=== PATIENT | female | born 1955 | race Caucasian/White ===

== ENCOUNTER 2016-09-10 16:31 | Emergency (ER) | payer OTHER ==
[~2016-09-10] VITALS: Ht 157.5 cm; Wt 77.1 kg
[~2016-09-10 16:31] MED LIST: METFORMIN500 MG PO
[2016-09-10 16:55] VITALS: BP 154/131
--- NOTE | 2016-09-10 17:00 | NUR ---
PT TO OVERFLOW.
--- NOTE | 2016-09-10 17:06 | NUR ---
PATIENT PRESENTS TO ED WITH C/O COUGH . PT STATES THE COUGH STARTED 2 WEEKS AGO AND HAS NOT IMPROVED . DENIES N/V/D; SKIN IS PINK/WARM/DRY; AAOX4 WITH EVEN AND STEADY GAIT; LUNGS CLEAR BL; HR EVEN AND REGULAR; PT DENIES ANY FEVER, CP, SOB, OR COUGH AT THIS TIME; PATIENT STATES PAIN IN HEAD AND CHEST 8/10 W/COUGH AT THIS TIME; VSS; PT IN OVERFLOW, ER MD MADE AWARE OF PT STATUS.
--- NOTE | 2016-09-10 17:30 | NUR ---
NO DISTRESS. STILL IN OF. LUNGS CLEAR TO AUSCULTATE
[2016-09-10 19:01] VITALS: BP 156/80
--- NOTE | 2016-09-10 19:02 | NUR ---
Patient discharged with v/s stable. Written and verbal after care instructions given and explained. Patient alert, oriented and verbalized understanding of instructions. Ambulatory with steady gait. All questions addressed prior to discharge. ID band removed. Patient advised to follow up with PMD. Rx of AZITHROMYCINOCEAN SPRAY, given. Patient educated on indication of medication including possible reaction and side effects. Opportunity to ask questions provided and answered.
== END 2016-09-10 19:02 | disposition home or self-care (01) ==
LOC: MED 16:31
DX: J01.90 Acute sinusitis, unspecified (principal)

== ENCOUNTER 2017-01-16 08:36 | Outpatient (CLI) | payer OTHER ==
[~2017-01-16 08:36] MED LIST changes: +GLU500 PO; -METFORMIN500 MG PO
[2017-01-16 09:16] LABS: BASOPHILS # (AUTO) 0.3 K/uL (0.00-0.22); BASOPHILS % (AUTO) 4.4 % (0.0-2.0); EOSINOPHILS # (AUTO) 0.2 K/uL (0-0.4); EOSINOPHILS % (AUTO) 4.1 % (0.0-4.0); HEMATOCRIT 34.5 % (36-48); HEMOGLOBIN 11.4 g/dL (12.0-16.0); LYMPHOCYTES # (AUTO) 2.4 K/uL (2.5-16.5); LYMPHOCYTES % (AUTO) 41.8 % (20.5-51.1); MEAN CORPUSCULAR HEMOGLOBIN 31 pg (27-31); MEAN CORPUSCULAR HGB CONC 33 g/dL (33-37); MEAN CORPUSCULAR VOLUME 94 fL (80-94); MONOCYTES # (AUTO) 0.7 K/uL (0.8-1.0); MONOCYTES % (AUTO) 12.2 % (1.7-9.3); NEUTROPHILS # (AUTO) 2.1 K/uL (1.8-7.7); NEUTROPHILS % (AUTO) 37.5 % (42.2-75.2); PLATELET COUNT (AUTO) 183 K/uL (140-450); RED BLOOD CELL COUNT(AUTO) 3.68 MIL/uL (4.20-5.40); RED CELL DISTRIBUTION WIDTH 13.4 % (11.6-13.7); WHITE BLOOD COUNT (AUTO) 5.7 K/uL (4.8-10.8)
[2017-01-16 09:40] LABS: ALBUMIN 3.8 g/dL (3.4-5.0); ANION GAP 7.6 (8-16); CARBON DIOXIDE 29.4 mmol/L (21-32); CHOL/HDL RATIO 2.6 (1-4.5); CREATININE 1.1 mg/dL (0.6-1.3); TOTAL BILIRUBIN 0.3 mg/dL (0.0-1.0)
[2017-01-16 09:44] LABS: APPEARANCE,URINE HAZY (CLEAR); BILIRUBIN,URINE NEGATIVE (NEGATIVE); BLOOD, URINE 1+ (NEGATIVE); COLOR,URINE YELLOW (YELLOW); LEUKOCYTE ESTERASE ,URINE 1+ (NEGATIVE); NITRITE, URINE NEGATIVE (NEGATIVE); UGLUCOSE NEGATIVE (NEGATIVE)
[2017-01-16 10:32] LABS: RBC,URINE 0-5 (RARE) /HPF (0-5)
== END 2017-01-16 20:41 | disposition home or self-care (01) ==
LOC: MLB 08:36
PROVIDERS: ATTEND Family Medicine Geriatric Medicine
DX: Z13.21 Encounter for screening for nutritional disorder (principal); Z12.11 Encounter for screening for malignant neoplasm of colon; E11.40 Type 2 diabetes mellitus with diabetic neuropathy, unspecified; D64.9 Anemia, unspecified; E78.00 Pure hypercholesterolemia, unspecified; I10 Essential (primary) hypertension
CPT/HCPCS: 36415; 80053; 81001; 82306; 83036; 85025; 87086

== ENCOUNTER 2017-07-10 10:14 | Outpatient (CLI) | payer OTHER | END 2017-07-10 19:56 | disposition home or self-care (01) | LOC: MUS 10:14 | PROVIDERS: ATTEND Family Medicine Geriatric Medicine | DX: M79.605 Pain in left leg (principal); I73.9 Peripheral vascular disease, unspecified | CPT/HCPCS: 93926; 93971 ==

== ENCOUNTER 2017-08-14 10:20 | Outpatient (CLI) | payer OTHER ==
[2017-08-14 11:32] LABS: ALBUMIN 3.7 g/dL (3.4-5.0); ANION GAP 13.9 (8-16); CARBON DIOXIDE 26.4 mmol/L (21-32); CHOL/HDL RATIO 2.9 (1-4.5); CREATININE 1.2 mg/dL (0.6-1.3); POTASSIUM 4.3 mmol/L (3.5-5.1); TOTAL BILIRUBIN 0.3 mg/dL (0.0-1.0)
== END 2017-08-14 17:36 | disposition home or self-care (01) ==
LOC: MLB 10:20
PROVIDERS: ATTEND Family Medicine Geriatric Medicine
DX: E11.40 Type 2 diabetes mellitus with diabetic neuropathy, unspecified (principal); E11.22 Type 2 diabetes mellitus with diabetic chronic kidney disease; N18.3 Chronic kidney disease, stage 3 (moderate); E78.00 Pure hypercholesterolemia, unspecified
CPT/HCPCS: 36415; 80053; 83036

== ENCOUNTER 2018-01-08 09:10 | Outpatient (CLI) | payer OTHER ==
[2018-01-08 11:13] LABS: ANION GAP 6.2 (8-16); CARBON DIOXIDE 27.6 mmol/L (21-32); POTASSIUM 4.8 mmol/L (3.5-5.1)
[2018-01-08 11:14] LABS: ALBUMIN 3.7 g/dL (3.4-5.0); CREATININE 1.3 mg/dL (0.6-1.3); TOTAL BILIRUBIN 0.2 mg/dL (0.0-1.0)
[2018-01-09 08:30] LABS: MICROALBUMIN, UR RANDOM <3.0 ug/mL (Not Estab.)
== END 2018-01-08 19:37 | disposition home or self-care (01) ==
LOC: MLB 09:10
PROVIDERS: ATTEND Family Medicine Geriatric Medicine
DX: E11.40 Type 2 diabetes mellitus with diabetic neuropathy, unspecified (principal)
CPT/HCPCS: 36415; 80053; 82043; 83036

== ENCOUNTER 2018-01-26 09:53 | Outpatient (CLI) | payer OTHER | END 2018-01-26 20:12 | disposition home or self-care (01) | LOC: MRD 09:53 | PROVIDERS: ATTEND Family Medicine Geriatric Medicine | DX: M17.0 Bilateral primary osteoarthritis of knee (principal); E11.9 Type 2 diabetes mellitus without complications | CPT/HCPCS: 73565 ==

== ENCOUNTER 2018-04-24 10:43 | Outpatient (CLI) | payer OTHER | END 2018-04-24 21:26 | disposition home or self-care (01) | LOC: MUS 10:43 | DX: N28.1 Cyst of kidney, acquired (principal); I10 Essential (primary) hypertension; E11.9 Type 2 diabetes mellitus without complications | CPT/HCPCS: 76770 ==

== ENCOUNTER 2018-04-27 11:05 | Outpatient (CLI) | payer OTHER ==
[2018-04-27 13:12] LABS: ALBUMIN 4.5 g/dL (3.4-5.0); PHOSPHORUS 4.6 mg/dL (2.5-4.9)
[2018-04-27 13:30] LABS: URIC ACID 5.9 mg/dL (2.6-7.2)
[2018-04-27 13:31] LABS: ANION GAP 13.7 (8-16); CARBON DIOXIDE 26.6 mmol/L (21-32); CREATININE 1.1 mg/dL (0.6-1.3); POTASSIUM 4.3 mmol/L (3.5-5.1)
== END 2018-04-27 20:42 | disposition home or self-care (01) ==
LOC: MLB 11:05
DX: N17.9 Acute kidney failure, unspecified (principal); I10 Essential (primary) hypertension; E11.9 Type 2 diabetes mellitus without complications
CPT/HCPCS: 36415; 80048; 82040; 82570; 84100; 84157; 84550

== ENCOUNTER 2018-09-22 10:42 | Emergency (ER) | payer OTHER ==
[~2018-09-22] VITALS: Ht 157.5 cm; Wt 76.7 kg
[2018-09-22 10:52] VITALS: BP 154/78
--- NOTE | 2018-09-22 10:55 | NUR ---
PT TO BED 9
--- NOTE | 2018-09-22 11:03 | NUR ---
63 YEAR OLD PATIENT BROUGHT IN BY SELF C/O LEFT KNEE PAIN. PT STATED KNEE PAIN STARTED AFTER ALMOST FALLING LAST NIGHT. KNEE PAIN CONTINUES AND APPEARS SWOLLEN. PATIENT STATES PAIN OF 10/10. ABLE TO ABULATE WITH CANE. MEDHX: DIABETES, LEFT LEG VARICOSE VEIN SURGERY. PATIENT STATED CHIROPRACTOR INJECTED MEDICATION IN LEFT KNEE 2 MONTHS AGO BUT MEDICINE DID NOT WORK. PATIENT POSITIONED FOR COMFORT; HOB ELEVATED; BEDRAILS UP X1
--- NOTE | 2018-09-22 11:03 | NUR ---
Note angelnay in EDM - 09/22/18 at 1107 by [email or web address] C/O OF LEFT KNEE PAIN X THIS AM WHILE GETTING OUT OF THE SHOWER. PT STS "I TWISTED IT." PATIENT C/O KNEE PAIN. PT STATED KNEE PAIN STARTED AFTER ALMOST FALLING LAST NIGHT. KNEE PAIN CONTINUES AND APPEARS SWOLLEN. PATIENT STATES PAIN OF 01/14. PATIENT POSITIONED FOR COMFORT; HOB ELEVATED; BEDRAILS UP X1
--- NOTE | 2018-09-22 11:07 | NUR ---
Note angelnay in EDM - 09/22/18 at 1119 by [facility] PATIENT C/O KNEE PAIN. PT STATED KNEE PAIN STARTED AFTER ALMOST FALLING LAST NIGHT. KNEE PAIN CONTINUES AND APPEARS SWOLLEN. PATIENT STATES PAIN OF 10/10. PATIENT POSITIONED FOR COMFORT; HOB ELEVATED; BEDRAILS UP X1
--- NOTE | 2018-09-22 11:10 | NUR ---
xray at bedside
--- NOTE | 2018-09-22 11:28 | NUR ---
Patient being reevaluated by DR. KAMARA at bedside.
[2018-09-22 11:37] VITALS: BP 154/78
--- NOTE | 2018-09-22 11:37 | NUR ---
Patient discharged with v/s stable. Written and verbal after care instructions given and explained. Patient alert, oriented and verbalized understanding of instructions. Ambulatory with crutches. All questions addressed prior to discharge. ID band removed. Patient advised to follow up with PMD. Rx of [place] given. Patient educated on indication of medication including possible reaction and side effects. Opportunity to ask questions provided and answered.
== END 2018-09-22 11:37 | disposition home or self-care (01) ==
LOC: MED 10:42
DX: S86.912A Strain of unspecified muscle(s) and tendon(s) at lower leg level, left leg, initial encounter (principal); R03.0 Elevated blood-pressure reading, without diagnosis of hypertension; E11.9 Type 2 diabetes mellitus without complications; K21.9 Gastro-esophageal reflux disease without esophagitis; Z79.84 Long term (current) use of oral hypoglycemic drugs; Z98.890 Other specified postprocedural states; W18.2XXA Fall in (into) shower or empty bathtub, initial encounter; Y93.89 Activity, other specified; Y92.89 Other specified places as the place of occurrence of the external cause; Y99.8 Other external cause status
CPT/HCPCS: 29505; 73562; 82948; 99283; Q0092

== ENCOUNTER 2019-02-11 08:33 | Outpatient (CLI) | payer OTHER ==
[2019-02-11 09:41] LABS: APPEARANCE,URINE CLEAR (CLEAR); BILIRUBIN,URINE NEGATIVE (NEGATIVE); BLOOD, URINE 1+ (NEGATIVE); COLOR,URINE YELLOW (YELLOW); LEUKOCYTE ESTERASE ,URINE TRACE (NEGATIVE); NITRITE, URINE NEGATIVE (NEGATIVE); PH,URINE 5.5 (5.0-9.0); UGLUCOSE NEGATIVE (NEGATIVE)
[2019-02-11 11:11] LABS: ALBUMIN 3.7 g/dL (3.4-5.0); ANION GAP 12.9 (8-16); CARBON DIOXIDE 26.1 mmol/L (21-32); CHOL/HDL RATIO 2.6 (1-4.5); TOTAL BILIRUBIN 0.3 mg/dL (0.0-1.0)
[2019-02-12 08:07] LABS: MICROALBUMIN, UR RANDOM 13.9 ug/mL (Not Estab.)
== END 2019-02-11 17:05 | disposition home or self-care (01) ==
LOC: MLB 08:33
DX: E11.40 Type 2 diabetes mellitus with diabetic neuropathy, unspecified (principal); E78.00 Pure hypercholesterolemia, unspecified
CPT/HCPCS: 36415; 80053; 81001; 82043; 83036; 87086

== ENCOUNTER 2020-02-09 08:49 | Outpatient (CLI) | payer OTHER ==
[2020-02-09 09:28] LABS: BASOPHILS % (AUTO) 0.7 % (0.0-2.0); EOSINOPHILS # (AUTO) 0.2 K/uL (0-0.4); EOSINOPHILS % (AUTO) 3.8 % (0.0-4.0); HEMATOCRIT 33.3 % (36-48); HEMOGLOBIN 11.1 g/dL (12.0-16.0); LYMPHOCYTES # (AUTO) 2.2 K/uL (2.5-16.5); LYMPHOCYTES % (AUTO) 40.4 % (20.5-51.1); MEAN CORPUSCULAR HEMOGLOBIN 32 pg (27-31); MEAN CORPUSCULAR HGB CONC 33 g/dL (33-37); MEAN CORPUSCULAR VOLUME 95.4 fL (80-94); MONOCYTES # (AUTO) 0.5 K/uL (0.8-1.0); MONOCYTES % (AUTO) 9.8 % (1.7-9.3); NEUTROPHILS # (AUTO) 2.5 K/uL (1.8-7.7); NEUTROPHILS % (AUTO) 45.3 % (42.2-75.2); PLATELET COUNT (AUTO) 198 K/uL (140-450); RED BLOOD CELL COUNT(AUTO) 3.49 MIL/uL (4.20-5.40); RED CELL DISTRIBUTION WIDTH 14.2 % (11.6-13.7); WHITE BLOOD COUNT (AUTO) 5.4 K/uL (4.8-10.8)
[2020-02-09 09:30] LABS: BILIRUBIN,URINE NEGATIVE (NEGATIVE); BLOOD, URINE TRACE-I (NEGATIVE); LEUKOCYTE ESTERASE ,URINE NEGATIVE (NEGATIVE); NITRITE, URINE NEGATIVE (NEGATIVE); PH,URINE 5.5 (5.0-9.0); UGLUCOSE NEGATIVE (NEGATIVE)
[2020-02-09 09:45] LABS: APPEARANCE,URINE CLEAR (CLEAR); COLOR,URINE YELLOW (YELLOW); RBC,URINE 0-5 /HPF (0-5); WBC,URINE 0-5 /HPF (0-5)
[2020-02-09 10:25] LABS: ALBUMIN 3.6 g/dL (3.4-5.0); CHOL/HDL RATIO 2.7 (1-4.5); THYROID STIMULATING HORMONE 1.78 uIU/mL (0.34-3.74); TOTAL BILIRUBIN 0.4 mg/dL (0.0-1.0)
== END 2020-02-09 21:57 | disposition home or self-care (01) ==
LOC: MLB 08:49
DX: M19.071 Primary osteoarthritis, right ankle and foot (principal); M77.31 Calcaneal spur, right foot; Z13.29 Encounter for screening for other suspected endocrine disorder; I10 Essential (primary) hypertension; Z13.21 Encounter for screening for nutritional disorder; E11.40 Type 2 diabetes mellitus with diabetic neuropathy, unspecified; Z13.0 Encounter for screening for diseases of the blood and blood-forming organs and certain disorders involving the immune mechanism; E78.00 Pure hypercholesterolemia, unspecified
CPT/HCPCS: 36415; 73650; 80053; 81001; 82043; 82306; 83036; 84436; 84443; 85025

== ENCOUNTER 2020-03-03 10:34 | Emergency (ER) | payer OTHER, SELFPAY ==
[~2020-03-03] VITALS: Ht 154.9 cm; Wt 70.3 kg
[2020-03-03 10:49] VITALS: BP 172/69
--- NOTE | 2020-03-03 10:50 | NUR ---
Patient in tent for covid precaution
--- NOTE | 2020-03-03 10:54 | NUR ---
Pt states she wants to be tested, possible covid + contact. Pt asymptomatic
--- NOTE | 2020-03-03 11:15 | NUR ---
COVID SWAB DONE.
[2020-03-03 11:57] VITALS: BP 151/88
--- NOTE | 2020-03-03 11:57 | NUR ---
Patient discharged with v/s stable. Written and verbal after care instructions given and explained. Patient verbalized understanding. Ambulatory with steady gait. All questions addressed prior to discharge. Advised to follow up with PMD.
== END 2020-03-03 11:57 | disposition home or self-care (01) ==
LOC: MED 10:34
DX: U07.1 COVID-19 (principal); E11.9 Type 2 diabetes mellitus without complications; Z79.899 Other long term (current) drug therapy
CPT/HCPCS: 99283; U0003